=== PATIENT | female | born 1985 | race Hispanic/Latino ===

== ENCOUNTER 2022-09-16 09:43 | Observation (INO) | payer OTHER ==
--- OUTSIDE RECORDS SUMMARY | 2022-09-16 09:47 | XMS REPORT | Continuity of Care Document ---
:1985 Author Organization [facility] t Address [address] [facility] 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 00:00: [place] depressive depressive 00 Me dical disorder, disorder, Bran ch unspecifie unspecifie d d depression depression episode episode severity severity 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 10-08 ity of reaction reaction 00:00: [address] Branch Mixed Mixed Disease Active Univers hyperlipid hyperlipid 10-08 it y of emia emia 00:00: [address] LGSIL (low LGSIL (low Disease Active U nivers grade grade 8-05 ity of squamous squamous 00:00: [place] intraepith intraepith 00 Me dical elial [facility] Branch dysplasia) dysplasia) Subserous Subserous Disease Active Uni vers leiomyoma leiomyoma 8- ity of of uterus of uterus 00:[facility]: [facility] [address] Allergies, Adverse Reactions, Alerts Allergy Allergy Status Severity Reaction(s) Onset Inactive Treating Comm ents Source Name Type Date Date Clinician NO KNOWN Drug Active Univers ALLERGIE Class ity of S [facility] Social History Social Habit Start Date Stop Date Quantity Comments Source ASSERTION 2021-12-10 [facility] 00:00:00 [facility] Exposure to 2022-01-18 2022-01-28 Not sure [facility]-CoV-2 00:00:00 13:36:00 [facility] (event) [place] Tobacco use and 2022-01-28 2022-01-28 Smokeless tobacco Un iversity of exposure 00:00:00 00:00:00 non-user [facility] Alcohol intake 2022-01-28 2022-01-28 Ex-drinker [facility] 00:00:00 00:00:00 (finding) [facility] Sex Ass[birth year] At [birth year] Universit y of 00:00:00 00:00:00 [facility] Smoking Status Start Date Stop Date Source [facility] Medications Ordered Filled Start Stop Current Ordering Indication Dosage Frequency Signature Comments Components Source Medication Medication Date Date Medication? Clinician (SIG) Name Name No known 2021-04 No No known Unive rs medications 0-18 medication it y of 15:59: s [address] 2021-04 Take 1 Univer s vit/iron 0-18 10-18 TAB-CAP/M2 ity of fum/folic 15:57: 00:00 by mouth Fredy as ac 24 :00 daily. Medical ( 1 Indication Br anch + 1 ORAL) s: OTC PNV,calcium 2021-04 Yes [id number] 1{each} Take 1 Univers 72-iron,car 0-18 Each by ity o f b-folic 00:00: mouth [place] ( 00 daily. Medical PLUS) 29 mg Branch iron- 1 mg Tab PNV,calcium 2021-04 Yes [id number] 1{each} Take 1 Univers 72-iron,car 0-18 Each by ity o f b-folic 00:00: mouth [place] ( 00 daily. Medical PLUS) 29 mg Branch iron- 1 mg Tab buPROPion Yes [id number] 150mg Take 1 Univers XL 6-28 tablet by ity of (WELLBUTRIN 00:00: mouth [place] XL) 150 mg 00 every Medical 24 hr morning. Branch tablet buPROPion Yes [id number] 150mg Take 1 Univers XL 6-28 tablet by ity of (WELLBUTRIN 00:00: mouth [place] XL) 150 mg 00 every Medical 24 hr morning. Branch tablet buPROPion 2017-0 Yes [id number] 150mg Take 1 Univers XL 6-28 tablet by ity of (WELLBUTRIN 00:00: mouth [place] XL) 150 mg 00 every Medical 24 hr morning. Branch tablet Vital Signs Vital Name Observation Time Observation Value Comments Source Systolic blood 2022-01-28 18:36:00 117 mm[Hg] Univer sity [facility] Diastolic blood 2022-01-28 18:36:00 71 mm[Hg] [facility] rate 2022-01-28 18:36:00 92 /min [facility] Body temperature 2022-01-28 18:36:00 36.22 [facility] Respiratory rate 2022-01-28 18:36:00 19 /min [facility] Body height 2022-01-28 18:36:00 162.6 cm [facility] Body weight 2022-01-28 18:36:00 84.142 kg [facility] BMI 2022-01-28 18:36:00 31.84 kg/m2 [facility] Procedures Procedure Date / Time Performing Clinician Source Performed AUTHORIZATION FOR 2022-02-27 06:01:00 Doctor Unassigned, No [facility] RELEASE OF [facility] POCT TEST 2022-01-28 18:38:00 Geovanna Farfan [facility] POCT URINALYSIS W/O 2022-01-28 18:38:00 Geovanna Farfan [facility] SPECIFIC GRAVITY [facility] ASSIGNMENT OF BENEFITS 2022-01-28 18:14:09 Doctor Unassigned, No [facility] Medical Branch AUTHORIZATION TO RELEASE Doctor Unassigned, No [facility] TO [facility] Encounters Start End Encounter Admission Attending Care Care Encounter Source Date/Time Date/Time Type Type Clinicians Facility Department ID 2022-02-27 2022-02-27 Orders Doctor ORDAZ [id number] Univers 00:00:00 00:00:00 Only Unassigned, RANDI [id number] ity of [place] [facility] [id number] Fredy as [phone] [address] 2022-01-28 2022-01-28 Initial Adolph [facility] [id number] Univers 13:15:00 15:12:08 Geovanna ECONOMICS PROFESSOR [id number] i ty of Visit REGIONAL [id number] Fredy as MATERNAL [phone] [facility] ical & CHILD [address] [place] [address] 2022-01-28 2022-01-28 Outpatient R GEOVANNA FARFAN [facility] [id number] Univers 13:15:00 15:12:08 GEOVANNA FARFAN [facility] 2022-01-28 2022-01-28 Orders Doctor ORLIN [id number] Univers 00:00:00 00:00:00 Only Unassigned, RANDI [id number] ity of [place] [facility] [id number] Fredy as [id number] [address] Orders Doctor ORLIN [id number] Univers 00:00:00 00:00:00 Only Unassigned, RANDI [id number] ity of [place] [facility] [id number] Fredy as [phone] [address] Results Test Description Test Time Test Comments Results Result Comments Source POCT URINALYSIS W/O SPECIFIC GRAVITY 2022-01-28 18:39:00 Test Item Value Reference Range Interpretation Comme nts POCT PH U (test code = 3254) 7 mg/dl 5-8 POCT U LEUK EST (test code = 3263) n Negative - Negative POCT U NIT (test code = 3262) n Negative - Negative POCT U PROT (test code = 3259) n Negative - Negative POCT U GLU (test code = 3256) n Negative - Negative POCT U KETONE (test code = 3258) n Negative - Negative POCT U BLD (test code = 3257) n Negative - Negative Lab Interpretation (test code = 02051-8) Normal [id number] 18:38:00 Test Item Value Reference Range Interpretation Comments POCT PREG (test code = 1605) Positive On board controls acceptable with C Yes Line (test code = 3574) POCT PREG LOT # (test code = 3575) POCT PREG TEST DATE (test code = 3576) [facility]
[2022-09-16] MEDS ORDERED: FENTANYL CITR 100 MCG/2 ML ONE (10:41)
[2022-09-16] MEDS ORDERED: FAMOTIDINE 20 MG/2 ML VIAL IV ONE (10:41)
[2022-09-16] MEDS ORDERED: NA CHLORIDE 0.9% 1,000 ML ONE (10:41)
[2022-09-16] MEDS ORDERED: ONDANSETRON 4 MG/2 ML VIAL ONE (10:41)
[2022-09-16 10:59] LABS: Absolute Lymphocytes (CBC) 3.5 K/uL (0.7-4.9); Hematocrit 40.6 % (36.0-45.0); Lymphocytes % 27.1 % (15.3-44.8); MCV 86.6 fL (80-100); MPV 6.9 fL (7.6-11.3); Protime INR 0.95; RBC Red Blood Cell Count 4.69 M/uL (3.86-4.86)
[2022-09-16 11:20] LABS: ALT/SGPT 83 U/L (13-56); Albumin 3.2 g/dL (3.4-5.0); Alkaline Phosphatase 179 U/L (45-117); BUN Blood Urea Nitrogen 20 mg/dL (7-18); Bicarbonate 30 mEq/L (21-32); Bilirubin Direct 0.1 mg/dL (0-0.2); Bilirubin Indirect, Calculated 0.3 mg/dL (0.2-0.8); Bilirubin Total 0.4 mg/dL (0.2-1.0); Glomerular Filtration Rate 116 ml/min (=/>90); Glucose Level 87 mg/dL (74-106); Lipase 47 U/L (13-75); NT PRO-BNP 101 pg/mL (<125); Protein, Total 6.9 g/dL (6.4-8.2); Sodium Level 141 mEq/L (136-145)
[2022-09-16 11:21] LABS: AST/SGOT 131 U/L (15-37); Magnesium 2.2 mg/dL (1.6-2.4); Potassium 4.2 mEq/L (3.5-5.1); Troponin High Sensitivity < 3.0 pg/mL (<58.9)
--- NOTE | 2022-09-16 11:38 | RAD REPORT ---
EXAM DESCRIPTION: CT - Angio Aorta For Dissection - 09/16/2022 11:00 am CLINICAL HISTORY: ABD PAIN COMPARISON: Abdomen Exam Limited dated 09/16/2022 TECHNIQUE: Dynamically enhanced 3 mm thick images of the chest, abdomen, and pelvis were obtained du ring administration of approximately 100mL Isovue 370 IV contrast. Sagittal and coronal reconstructio ns as well as maximal intensity projection reconstruction were generated and reviewed per an aortic a ngiography protocol. All CT scans are performed using dose optimization technique as appropriate and may include automated exposure control or mA/KV adjustment according to patient size. FINDINGS: Aorta is normal in diameter with no dissection or other acute aortic findings. Reconstruct ion images show no significant findings. Pulmonary arteries are normal as well. No mass or infiltrate in the lung parenchyma. No pleural thickening, pleural effusion or pneumothorax . No abnormal mediastinal or hilar mass or lymphadenopathy seen. No chest wall mass or abnormal axillar y lymphadenopathy. Celiac, SMA and renal arteries show no suspicious findings. Cholesterol containing gallstones are not ed. Rotated right kidney. Posteriorly situated left pelvic mass which could be related to the lower u terine segment, measuring 8.8 x 7.8 x 7.8 centimeter. Ventricular marginally enhancing symmetric left lower abdominal wall fluid collection, symmetric, measuring up to 1.7 centimeter in thickness, with an overlying probable incision. Solid abdominal viscera and bowel show no other significant findings. No mass or abnormal lymphadenopathy. IMPRESSION: No acute abnormalities on CT angiogram of the aorta. Left posterior pelvic mass up to 8.8 centimeter in size, not well characterized. This could represent a lower segment or cervical fibroid among other considerations. Consider additional evaluation by de dicated pelvic ultrasound, although this may be suboptimal given size and posterior location of the m ass. MRI of the pelvis would provide superior soft tissue characterization. Other incidental findings as above, including a lower anterior abdominal wall lenticular collection, could represent a postoperative seroma.
--- NOTE | 2022-09-16 11:39 | RAD REPORT ---
EXAM DESCRIPTION: US - Abdomen Exam Limited - 09/16/2022 10:45 am CLINICAL HISTORY: ABD PAIN COMPARISON: No comparisons TECHNIQUE: Sonographic grayscale and color flow images of the right upper abdominal quadrant were obtained. FINDINGS: The gallbladder demonstrates multiple echogenic shadowing stones. No pericholecystic fluid or gallbladder wall thickening. The common bile duct is normal measuring 4 mm. The liver demonstrates no findings of intrahepatic biliary dilatation. IMPRESSION: Cholelithiasis. No sonographic findings to suggest acute cholecystitis.
--- NOTE | 2022-09-16 11:40 | RAD REPORT ---
EXAM DESCRIPTION: [place] Single View09/16/2022 11:22 am CLINICAL HISTORY: ABDOMINAL DISTENTION COMPARISON: No comparisons TECHNIQUE: Portable AP view of the chest. FINDINGS: The lungs are clear. No pneumothorax or effusion. The cardiomediastinal contours are unre markable. IMPRESSION: No acute cardiopulmonary process.
[2022-09-16] MEDS ORDERED: PIPERACIL/TAZO 3.375 GM VIAL IV ONE (11:45)
[2022-09-16] MEDS ORDERED: NA CHLORIDE 0.9% 100 ML ONE (11:45)
--- NOTE | 2022-09-16 12:04 | ER ---
Nurse's Notes [facility] Name: Frida Amador Age: 37 yrs Sex: Female : 1985 Arrival Date: 09/16/2022 Time: 09:43 Bed 7 Private MD: Diagnosis: Other cholelithiasis with obstruction;Cholecystitis, unspecified;Chest pain, unspecified Presentation: 09/16 09:48 Chief complaint: Patient states: woke up with chest pain today around 0430, pain went aa5 away for an hour and came back. Pt c/o chest pain radiating to back. 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 09:48 Coronavirus screen: shortness of breath. Ebola Screen: Patient denies travel to an [facility] Ebola-affected area in the 21 days before illness onset. Initial Sepsis Screen: Does the patient meet any 2 criteria? No. Patient's initial sepsis screen is negative. Does the patient have a suspected source of infection? No. Patient's initial sepsis screen is negative. Risk Assessment: Do you want to hurt yourself or someone else? Patient reports no desire to harm self or others. Onset of symptoms was September 16, 2022. 09:48 Acuity: KATHY 2 aa5 09:48 Method Of Arrival: Ambulatory aa5 SOCIAL SERVICE ASSISTANT: 11:00 "" nj Historical: - Allergies: 09:56 No Known Allergies; aa5 - Home Meds: 09:56 norco as needed [Active]; vitamins [Active]; ibuprofen as needed [Active]; aa5 steroids for allergic reaction from tape to site [Active]; - PMHx: 09:56 None; aa5 - PSHx: 09:56 section; aa5 - Immunization history:: Adult Immunizations unknown. - Social history:: Smoking status: Patient denies any tobacco usage or history of. Screenin:48 [facility] ED Fall Risk Assessment (Adult) Score/Fall Risk Level 0 - 2 = Low Risk hb Oriented to surroundings, Maintained a safe environment. Abuse screen: Denies threats or abuse. Denies injuries from another. Nutritional screening: No deficits noted. Tuberculosis screening: No symptoms or risk factors identified. Assessment: 10:49 General: Appears in no apparent distress. Behavior is calm, cooperative. Pain: Pain hb currently is 7 out of 10 on a pain scale. Neuro: Level of Consciousness is awake, alert, obeys commands, Oriented to person, place, time, situation. Cardiovascular: Patient's skin is warm and dry. Respiratory: Reports shortness of breath at rest on exertion Respiratory effort is even, unlabored, Respiratory pattern is regular, symmetrical. GI: Reports lower abdominal pain, upper abdominal pain. : No signs and/or symptoms were reported regarding the genitourinary system. EENT: No signs and/or symptoms were reported regarding the EENT system. Derm: Skin is pink, warm \\T\\ dry. Musculoskeletal: No signs and/or symptoms reported regarding the musculoskeletal system. 11:50 Reassessment: Patient appears in no apparent distress at this time. Patient and/or nj1 family updated on plan of care and expected duration. Pain level reassessed. Patient is alert, oriented x 3, equal unlabored respirations, skin warm/dry/pink. 11:50 Pain: Denies pain. nj1 13:00 Reassessment: Patient not in room at this time. nj1 13:54 Reassessment: Pt not in room at this time. nj1 14:14 Reassessment: Patient appears in no apparent distress at this time. Patient and/or nj1 family updated on plan of care and expected duration. Pain level reassessed. Patient is alert, oriented x 3, equal unlabored respirations, skin warm/dry/pink. 15:07 Reassessment: Call placed to warehouse unloader to request help obtaining a breast pump nj1 as instructed/requested by hospitalist HIDE SHAKER. 15:30 Reassessment: Patient appears in no apparent distress at this time. Patient and/or nj1 family updated on plan of care and expected duration. Pain level reassessed. Patient is alert, oriented x 3, equal unlabored respirations, skin warm/dry/pink. 16:10 Reassessment: Patient appears in no apparent distress at this time. Patient and/or nj1 family updated on plan of care and expected duration. Pain level reassessed. Patient is alert, oriented x 3, equal unlabored respirations, skin warm/dry/pink. 18:30 Reassessment: Patient appears in no apparent distress at this time. Patient and/or nj1 family updated on plan of care and expected duration. Pain level reassessed. Patient is alert, oriented x 3, equal unlabored respirations, skin warm/dry/pink. 18:56 Reassessment: Unsuccessful attempt to call report, "nurses doing shift change report". nj1 Vital Signs: 09:48 BP 115 / 76; Pulse 78; Resp 18 S; Temp 98(O); Pulse Ox 98% on R/A; Weight 89.36 kg (R); aa5 Height 5 ft. 4 in. (R); 11:34 BP 131 / 99; Pulse 74; Pulse Ox 97% on R/A; nj1 14:13 BP 108 / 92; Pulse 63; Resp 16; Pulse Ox 97% on R/A; Pain 5/10; nj1 15:12 BP 110 / 69; Pulse 66; Resp 15; Pulse Ox 99% on R/A; hb 16:10 BP 135 / 87; Pulse 83; Resp 16; Pulse Ox 98% on R/A; Pain 3/10; nj1 17:29 BP 132 / 97; Pulse 79; Resp 17; Pulse Ox 95% on R/A; nj1 18:30 BP 110 / 96; Pulse 78; Resp 16; Pulse Ox 99% ; Pain 3/10; nj1 09:48 Body Mass Index 33.81 (89.36 kg, 162.56 cm) aa5 14:13 Pain Scale: Adult nj1 16:10 Pain Scale: Adult nj1 18:30 Pain Scale: Adult nj1 ED Course: 09:44 Patient arrived in ED. am2 09:45 Max Blunt MD is Attending Physician. [facility] 09:48 Suzi Morales, MARCELINO is Primary Nurse. nj1 09:48 Arm band placed on. aa5 09:56 Triage completed. aa5 10:47 US Abdomen Limited In Process Unspecified. EDMS 10:48 Inserted saline lock: 20 gauge in left antecubital area, using aseptic technique. Blood hb collected. Patient maintains SpO2 saturation greater than 95% on room air. 10:50 Patient has correct armband on for positive identification. Client placed on continuous hb cardiac and pulse oximetry monitoring. NIBP monitoring applied. 11:02 CT Aorta for Dissection: pe/dissection In Process Unspecified. EDMS 11:24 XRAY Chest (1 view) In Process Unspecified. EDMS 12:02 Anthony Amador MD is Hospitalizing Provider. [facility] 12:08 Hospitalizing Provider role handed off by Anthony Amador MD neha 12:08 Laz Parrish MD is Hospitalizing Provider. neha 12:47 Pelvis Complete In Process Unspecified. EDMS 14:01 Cholangiogram In Process Unspecified. EDMS Administered Medications: 10:47 Drug: Famotidine IVP 20 mg Route: IVP; Site: left antecubital; hb 12:06 Follow up: Response: No adverse reaction nj1 10:47 Drug: fentaNYL (PF) IVP 50 mcg Route: IVP; Site: left antecubital; hb 12:05 Follow up: Response: No adverse reaction; Pain is decreased nj1 10:47 Drug: Ondansetron IVP 4 mg Route: IVP; Site: left antecubital; hb 12:05 Follow up: Response: No adverse reaction nj1 10:48 Drug: NS 0.9% IV 1000 ml Route: IV; Rate: 1 bolus; Site: left antecubital; hb 12:30 Follow up: Response: No adverse reaction; IV Status: Completed infusion; IV Intake: nj1 1000ml 11:56 Drug: Piperacillin-Tazobactam IVPB 3.375 grams Route: IVPB; Infused Over: 60 mins; nj1 Site: left antecubital; 15:30 Follow up: Response: No adverse reaction; IV Status: Completed infusion; IV Intake: nj1 100ml 13:28 Drug: Ativan IVP 1 mg Route: IVP; Site: left antecubital; hb 15:44 Follow up: Response: No adverse reaction nj1 Medication: 10:50 VIS not applicable for this client. hb Intake: 12:30 IV: 1000ml; Total: 1000ml. nj1 15:30 IV: 100ml; Total: 1100ml. nj1 Outcome: 12:03 Decision to Hospitalize by Provider. neha 19:53 Patient left the ED. jb4 Signatures: Dispatcher [employer] EDMS Max Blunt MD MD cha Calderon, Audri, RN RN aa5 Toshia Santos, MARCELINO RN Charlie Farr, RN RN jb4 Kenyetta Blue am2 Suzi Morales, MARCELINO RN nj1 Corrections: (The following items were deleted from the chart) 09:58 09:48 Chief complaint: Patient states: woke up with chest pain today around 0430, pain aa5 went away for an hour and came back. Pt c/o chest pain radiating to back. Pt reports had 08/26/22 aa5
--- NOTE | 2022-09-16 12:04 | EDPHYS ---
Physician Documentation [facility] Name: Frida Amador Age: 37 yrs Sex: Female : 1985 Arrival Date: 09/16/2022 Time: 09:43 Bed 7 Private MD: FLO Physician Max Blunt HPI: 09/16 11:13 This 37 yrs old Female presents to ER via Ambulatory with complaints of Chest neha Pain, Back Pain, recent . 11:13 The patient or guardian reports chest pain that is located primarily in the epigastric neha area, anterior chest wall. The pain radiates to Associated signs and symptoms: Pertinent positives: abdominal pain. The chest pain is described as causing indigestion. Duration: The patient or guardian reports multiple episodes, that have now resolved. Severity of pain: At its worst the pain was moderate. The patient has not experienced similar symptoms in the past. 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 - Social history:: Smoking status: Patient denies any tobacco usage or history of. ROS: 11:27 Constitutional: Negative for fever, chills, and weight loss, Eyes: Negative for injury, neha pain, redness, and discharge, ENT: Negative for injury, pain, and discharge, Neck: Negative for injury, pain, and swelling, Cardiovascular: Negative for chest pain, palpitations, and edema, Respiratory: Negative for shortness of breath, cough, wheezing, and pleuritic chest pain, Back: Negative for injury and pain, : Negative for injury, bleeding, discharge, and swelling, MS/Extremity: Negative for injury and deformity, Skin: Negative for injury, rash, and discoloration, Neuro: Negative for headache, weakness, numbness, tingling, and seizure, Psych: Negative for depression, anxiety, suicide ideation, homicidal ideation, and hallucinations, Allergy/Immunology: Negative for hives, rash, and allergies, Endocrine: Negative for neck swelling, polydipsia, polyuria, polyphagia, and marked weight changes, Hematologic/Lymphatic: Negative for swollen nodes, abnormal bleeding, and unusual bruising. 11:27 Abdomen/GI: Positive for abdominal pain, of the epigastric area and right upper quadrant. Exam: 11:27 Constitutional: This is a well developed, well nourished patient who is awake, alert, neha and in no acute distress. Head/Face: Normocephalic, atraumatic. Eyes: Pupils equal round and reactive to light, extra-ocular motions intact. Lids and lashes normal. Conjunctiva and sclera are non-icteric and not injected. Cornea within normal limits. Periorbital areas with no swelling, redness, or edema. ENT: Nares patent. No nasal discharge, no septal abnormalities noted. Tympanic membranes are normal and external auditory canals are clear. Oropharynx with no redness, swelling, or masses, exudates, or evidence of obstruction, uvula midline. Mucous membranes moist. Neck: Trachea midline, no thyromegaly or masses palpated, and no cervical lymphadenopathy. Supple, full range of motion without nuchal rigidity, or vertebral point tenderness. No Meningismus. Chest/axilla: Normal chest wall appearance and motion. Nontender with no deformity. No lesions are appreciated. Cardiovascular: Regular rate and rhythm with a normal S1 and S2. No gallops, murmurs, or rubs. Normal PMI, no JVD. No pulse deficits. Respiratory: Lungs have equal breath sounds bilaterally, clear to auscultation and percussion. No rales, rhonchi or wheezes noted. No increased work of breathing, no retractions or nasal flaring. Back: No spinal tenderness. No costovertebral tenderness. Full range of motion. Female : Normal external genitalia. Skin: Warm, dry with normal turgor. Normal color with no rashes, no lesions, and no evidence of cellulitis. MS/ Extremity: Pulses equal, no cyanosis. Neurovascular intact. Full, normal range of motion. Neuro: Awake and alert, GCS 15, oriented to person, place, time, and situation. Cranial nerves II-XII grossly intact. Motor strength 5/5 in all extremities. Sensory grossly intact. Cerebellar exam normal. Normal gait. Psych: Awake, alert, with orientation to person, place and time. Behavior, mood, and affect are within normal limits. 11:27 Abdomen/GI: Inspection: distension, Bowel sounds: active, Palpation: mild abdominal tenderness, moderate abdominal tenderness, in the right upper quadrant, Liver: no appreciated palpable abnormalities, Hernia: not appreciated. 12:04 ECG was reviewed by the Attending Physician. [facility] Vital Signs: 09:48 BP 115 / 76; Pulse 78; Resp 18 S; Temp 98(O); Pulse Ox 98% on R/A; Weight 89.36 kg (R); aa5 Height 5 ft. 4 in. (R); 11:34 BP 131 / 99; Pulse 74; Pulse Ox 97% on R/A; nj1 14:13 BP 108 / 92; Pulse 63; Resp 16; Pulse Ox 97% on R/A; Pain 5/10; nj1 15:12 BP 110 / 69; Pulse 66; Resp 15; Pulse Ox 99% on R/A; hb 16:10 BP 135 / 87; Pulse 83; Resp 16; Pulse Ox 98% on R/A; Pain 3/10; nj1 17:29 BP 132 / 97; Pulse 79; Resp 17; Pulse Ox 95% on R/A; nj1 18:30 BP 110 / 96; Pulse 78; Resp 16; Pulse Ox 99% ; Pain 3/10; nj1 09:48 Body Mass Index 33.81 (89.36 kg, 162.56 cm) aa5 14:13 Pain Scale: Adult nj1 16:10 Pain Scale: Adult nj1 18:30 Pain Scale: Adult nj1 MDM: 09:45 Patient medically screened. [facility] 11:29 Differential diagnosis: abnormal EKG, acute myocardial infarction, chest wall pain, neha cholecystitis, Cholelithiasis esophagitis, pancreatitis, peptic ulcer disease, pericarditis, pulmonary embolus, stable angina, thoracic aortic disection, unstable angina. HEART Score: History: Slightly Suspicious (0), ECG: Non specific repolarization disturbance / LBTB / PM (1), Age: < or = 45 years (0), Risk Factors: No Risk Factors Known (0), Troponin: < or = 1 x Normal Limit (0). MAXIM Risk Score: TOTAL SCORE = 0. Data reviewed: vital signs, nurses notes, lab test result(s), EKG, radiologic studies, CT scan, MRI, ultrasound. Consideration of Admission/Observation Escalation of care including admission/observation considered. I considered the following discharge prescriptions or medication management in the emergency department Medications were administered in the Emergency Department. See MAR. Test considered but Not performed:. Care significantly affected by the following chronic conditions: none, post . 09/16 10:21 Order name: Basic Metabolic Panel; Complete Time: 11:28 [facility] 09/16 10:21 Order name: CBC with Diff; Complete Time: 11:28 [facility] 09/16 10:21 Order name: LFT's; Complete Time: 11:28 [facility] 09/16 10:21 Order name: Magnesium; Complete Time: 11:28 [facility] 09/16 10:21 Order name: NT PRO-BNP; Complete Time: 11:28 [facility] 09/16 10:21 Order name: PT-INR; Complete Time: 11:28 [facility] 09/16 10:21 Order name: Troponin HS; Complete Time: 11:28 [facility] 09/16 10:21 Order name: Lipase; Complete Time: 11:28 [facility] 09/16 18:15 Order name: Phosphorus [facility] 09/16 18:15 Order name: Magnesium [facility] 09/16 18:18 Order name: Troponin High Sensitivity [facility] 09/16 10:21 Order name: XRAY Chest (1 view); Complete Time: 11:51 [facility] 09/16 10:21 Order name: CT Aorta for Dissection: pe/dissection; Complete Time: 11:51 [facility] 09/16 10:21 Order name: US Abdomen Limited; Complete Time: 11:51 [facility] 09/16 11:33 Order name: Cholangiogram [facility] 09/16 12:41 Order name: Pelvis Complete; Complete Time: 14:24 [facility] 09/16 10:21 Order name: EKG; Complete Time: 10:22 [facility] 09/16 18:08 Order name: Diet Heart Healthy; Complete Time: 18:09 [facility] 09/16 10:21 Order name: Cardiac monitoring; Complete Time: 10:48 [facility] 09/16 10:21 Order name: EKG - Nurse/Tech; Complete Time: 12:06 [facility] 09/16 10:21 Order name: IV Saline Lock; Complete Time: 10:48 [facility] 09/16 10:21 Order name: Labs collected and sent; Complete Time: 10:48 [facility] 09/16 10:21 Order name: O2 Per Protocol; Complete Time: 10:48 [facility] 09/16 10:21 Order name: O2 Sat Monitoring; Complete Time: :48 neha EC:04 Rate is 68 beats/min. QRS [place] is Normal. OK interval is normal. QRS interval is neha normal. QT interval is normal. No Q waves. T waves are Normal. No ST changes noted. Clinical impression: Normal ECG and No evidence of ischemia. Interpreted by me. Reviewed by me. Administered Medications: 10:47 Drug: Famotidine IVP 20 mg Route: IVP; Site: left antecubital; hb 12:06 Follow up: Response: No adverse reaction nj1 10:47 Drug: fentaNYL (PF) IVP 50 mcg Route: IVP; Site: left antecubital; hb 12:05 Follow up: Response: No adverse reaction; Pain is decreased nj1 10:47 Drug: Ondansetron IVP 4 mg Route: IVP; Site: left antecubital; hb 12:05 Follow up: Response: No adverse reaction nj1 10:48 Drug: NS 0.9% IV 1000 ml Route: IV; Rate: 1 bolus; Site: left antecubital; hb 12:30 Follow up: Response: No adverse reaction; IV Status: Completed infusion; IV Intake: nj1 1000ml 11:56 Drug: Piperacillin-Tazobactam IVPB 3.375 grams Route: IVPB; Infused Over: 60 mins; nj1 Site: left antecubital; 15:30 Follow up: Response: No adverse reaction; IV Status: Completed infusion; IV Intake: nj1 100ml 13:28 Drug: Ativan IVP 1 mg Route: IVP; Site: left antecubital; hb 15:44 Follow up: Response: No adverse reaction nj1 Disposition Summary: 09/16/22 12:03 Hospitalization Ordered Hospitalization Status: Observation neha Location: Telemetry/MedSurg (observation) neha Condition: Stable neha Problem: new neha Symptoms: have improved neha Bed/Room Type: Standard neha Provider: Laz Parrish(09/16/22 12:10) neha Room Assignment: 210(09/16/22 18:44) bd Diagnosis - Other cholelithiasis with obstruction neha - Cholecystitis, unspecified neha - Chest pain, unspecified neha Forms: - Medication Reconciliation Form neha - SBAR form neha Signatures: Dispatcher [employer] EDMS Zari Coker Corey, MD MD cha Calderon, Audri, RN RN aa5 Toshia Santos, MARCELINO RN Suzi Morales RN RN nj1 Corrections: (The following items were deleted from the chart) 12:10 12:03 Anthony Amador cha, cha 12:41 11:54 Transvaginal Study (Probe)+US.RAD.BRZ ordered. EDMS EDMS 18:44 12:03 neha otto
--- NOTE | 2022-09-16 13:10 | RAD REPORT ---
EXAM DESCRIPTION: US - Pelvis Complete - 09/16/2022 12:46 pm CLINICAL HISTORY: 8 cm mass, seroma COMPARISON: Angio Aorta For Dissection dated 09/16/2022 TECHNIQUE: Sonographic grayscale and color flow images of the pelvis were obtained through a trans abdominal approach. FINDINGS: The uterus is enlarged, measuring 13.8 centimeter in length. Heterogeneity seen in the jules tral aspect of the fundus, likely relating to involuting endometrium, following recent . The endometrial stripe could not be accurately measured. The posteriorly situated masslike abnormalit y appreciated on CT was not well visualized on this ultrasound. The ovaries were not visualized due to displacement by the enlarged uterus. No significant pelvic ascites. IMPRESSION: Recently gravid uterus as above. Some heterogeneity at the central aspect of the fundus likely relating to involuting endometrium. The ovaries could not be visualized. The posteriorly situated masslike abnormality appreciated on CT is not well visualized on this transa bdominal ultrasound. MRI would be more helpful for further evaluation, however preferably it can be p erformed after more time was allowed for uterine involution, in 2-6 weeks.
[2022-09-16] MEDS ORDERED: LORazepam 2 MG/ML VIAL ONE (13:29)
--- NOTE | 2022-09-16 14:08 | RAD REPORT ---
EXAM DESCRIPTION: MRI - Cholangiogram - 09/16/2022 1:59 pm CLINICAL HISTORY: abd pain COMPARISON: Angio Aorta For Dissection dated 09/16/2022; Pelvis Complete dated 09/16/2022 FINDINGS: Three-dimensional MRCP was performed using maximum intensity projection reconstruction on the same work station. No intrahepatic biliary tree dilatation is seen. The common bile duct is normal caliber without evide nce of retained stone, stricture or mass. The pancreatic duct is not pathologically dilated. Extensive cholelithiasis is present with gallbladder distension. Limited T2 sequences through the abdomen demonstrates no bulky adenopathy, significant free fluid or abscess. IMPRESSION: Extensive cholelithiasis with gallbladder distension.
[2022-09-16] MEDS ORDERED: ACETAMINOPHEN 325 MG TABLET PO PRN (14:16)
--- NOTE | 2022-09-16 15:34 | P.HP ---
Certification for Inpatient Patient admitted to: Observation With expected LOS: <2 Midnights Patient will require the following post-hospital care: None Practitioner: I am a practitioner with admitting privileges, knowledge of patient current condition, hospital course, and medical plan of care. Services: Services provided to patient in accordance with Admission requirements found in Title 42 Section 412.3 of the Code of Federal Regulations Patient History Date of Service: 09/16/22 Reason for admission: Epigastric pain History of Present Illness: Patient is a 37-year-old with no known past medical history who presents with complaints of chest pain located in the epigastric area onset this morning. Patient rated pain as 10/10 in severity and described pain as sharp in quality. Patient indicated that chest pain radiates to her back. Patient indicated that she recently had a 08/25/2022 and is currently breast-feeding. Patient reported associated signs and symptoms of diaphoresis and shortness of breath. Patient denies any other signs and symptoms. Symptoms are aggravated or relieved by nothing. Patient decided to present to the hospital due to worsening symptoms. Allergies No Known Allergies Allergy (Unverified 04/27/22 21:42) - Past Medical/Surgical History Past Medical History: Reviewed- Non-Contributory -: - Family History Family History: Reviewed- Non-Contributory - Social History Smoking Status: Former smoker Alcohol use: No CD- Drugs: No Caffeine use: Yes Place of Residence: Home Review of Systems General: Sweats Eyes: Unremarkable ENT: Unremarkable Respiratory: Shortness of Breath Cardiovascular: Chest Pain Gastrointestinal: Abdominal Pain Genitourinary: Unremarkable Musculoskeletal: Unremarkable Integumentary: Unremarkable Neurological: Unremarkable Lymphatics: Unremarkable Physical Examination - Physical Exam General: Alert, In no apparent distress, Oriented x3, Cooperative HEENT: Atraumatic, PERRLA, Mucous membr. moist/pink, EOMI, Sclerae nonicteric Neck: Supple, 2+ carotid pulse no bruit, No LAD, Without JVD or thyroid abnormality Respiratory: Clear to auscultation bilaterally, Normal air movement Cardiovascular: No edema, Regular rate/rhythm, Normal S1 S2 Capillary refill: <2 Seconds Gastrointestinal: Normal bowel sounds, Soft and benign, Tenderness Musculoskeletal: No clubbing, No swelling, No tenderness Integumentary: No rashes Neurological: Normal gait, Normal speech, Normal strength at 5/5 x4 extr, Normal tone, Normal affect Lymphatics: No axilla or inguinal lymphadenopathy - Studies Laboratory Data (last 24 hrs) 09/16/22 10:45: PT 10.4, INR 0.95 09/16/22 10:45: WBC 12.90 H, Hgb 13.2, Hct 40.6, Plt Count 541 H 09/16/22 10:45: Sodium 141, Potassium 4.2, BUN 20 H, Creatinine 0.67, Glucose 87, Magnesium 2.2, Total Bilirubin 0.4, AST 131 H, ALT 83 H, Alkaline Phosphatase 179 H, Lipase 47 Assessment and Plan - Plan --Cholelithiasis. MRCP indicates Extensive cholelithiasis with gallbladder distension. Surgeon consulted. Plans surgery in AM. We will keep patient NPO. Further management per surgeon. -- Acute pain. We will manage pain with current pain medication regimen. --Chest pain. Likely atypical. Serial troponins negative so far. Telemetry to monitor for any significant arrhythmia. Continue supportive care. --. Patient recently had on 08/26/2022. Breast pump to bedside. Patient instructed to pump and dump breast-feed breast due to contrast for imaging studies. Pharmacy consulted for medication management. --Class I obesity. Likely secondary to excess calories intake. Patient counseled on weight reduction, diet and exercise therapy. --Leukocytosis. Likely reactive. Blood cultures pending. We will continue to monitor WBCs. --DVT prophylaxis with SCDs. Discharge Plan: Home Plan to discharge in: 48 Hours - Advance Directives Does patient have a Living Will: No Does patient have a Durable POA for Healthcare: No - Code Status/Comfort Care Code Status Assessed: Yes Physician Review: Patient Assessed, Agree with Above Assessment and Plan Critical Care: No
[2022-09-16 18:14] LABS: Magnesium 2.2 mg/dL (1.6-2.4); Phosphorus 3.6 mg/dL (2.5-4.9)
[2022-09-16] MEDS: D5 0.9 NS 1,000 ML IV SCH (20:26)
[2022-09-16 21:33] VITALS: BMI 33.7
[2022-09-17] MEDS: PIPER TAZO 3.375 GM in NA CHLORIDE 0.9% 100 ML IV SCH ×3 (01:16→16:45)
[2022-09-17 04:07] LABS: Absolute Lymphocytes (CBC) 2.8 K/uL (0.7-4.9); Hematocrit 38.4 % (36.0-45.0); Lymphocytes % 29.6 % (15.3-44.8); MCV 86.4 fL (80-100); MPV 7.6 fL (7.6-11.3); RBC Red Blood Cell Count 4.45 M/uL (3.86-4.86)
[2022-09-17 04:28] LABS: Albumin 3.1 g/dL (3.4-5.0); Bilirubin Direct 0.1 mg/dL (0-0.2); Bilirubin Total 0.3 mg/dL (0.2-1.0); Potassium 3.7 mEq/L (3.5-5.1); Protein, Total 6.6 g/dL (6.4-8.2)
--- NOTE | 2022-09-17 07:17 | EKG ---
Test Date: 2022-09-16 Test Time: 11:52:28 Mail Caller: THOM MEASUREMENT RESULTS: Intervals: Rate: 68 CA: 156 QRSD: 92 QT: 392 QTc: 416 [place]: P: 45 CA: 156 QRS: 36 T: 44 INTERPRETIVE STATEMENTS: Normal sinus rhythm Normal ECG No previous ECG available for comparison Electronically Signed On 09-17-22 07:14:12 CDT by Kyle Hunter
[2022-09-17 07:27] LABS: Specific Gravity 1.027 (1.005-1.030); Urine Bacteria None Seen /HPF (<20); Urine Bilirubin NEGATIVE (Negative); Urine Blood Trace (Negative); Urine Clarity Clear (Clear); Urine Color Light-Yellow (Yellow); Urine Glucose NEGATIVE (Negative); Urine Mucus Slight /HPF (None Seen); Urine Protein NEGATIVE (Negative); Urine RBC <5 /HPF (None Seen); Urine Urobilinogen Normal (Normal); Urine pH 5.5 (5.0-7.0)
[2022-09-17] MEDS: MORPHINE 2 MG/ML SYR IV PRN ×5 (09:04→23:34)
[2022-09-17] MEDS ORDERED: Ringers Lactate 1,000 ML IV ONE (09:25)
[2022-09-17] MEDS ORDERED: propofoL 200 MG/20 ML VIAL IV ONE (09:53)
[2022-09-17] MEDS ORDERED: FENTANYL CITR 100 MCG/2 ML ONE (09:56)
[2022-09-17] MEDS ORDERED: ROCURONIUM 50 MG/5 ML VIAL IV ONE (09:56)
[2022-09-17] MEDS ORDERED: MIDAZOLAM HCL 2 MG/2 ML INJ ONE (09:56)
[2022-09-17] MEDS ORDERED: KETOROLAC 30 MG/ML INJ ONE (09:56)
[2022-09-17] MEDS ORDERED: ONDANSETRON 4 MG/2 ML VIAL ONE ×2 (09:57→14:37)
[2022-09-17] MEDS ORDERED: POTASSIUM CL SA 10 MEQ TAB PO ONE (12:00)
[2022-09-17] MEDS ORDERED: NEOSTIGMINE 1 MG/ML -10 ML VIAL ONE (12:01)
[2022-09-17] MEDS ORDERED: GLYCOPYRROLATE 0.2 MG/ML SYR ONE (12:01)
--- NOTE | 2022-09-17 12:03 | P.BOP ---
Preoperative diagnosis: acute cholecystitis, symptomatic cholelithiasis Postoperative diagnosis: same Primary procedure: Laparoscopic cholecystectomy Lime Sludge Mixer: MICHELLE ENRIQUEZ ([employer] ) Estimated blood loss: <20cc Specimen: gb Findings: as above Anesthesia: General Complications: None Drain(s): TYLOR drain Transferred to: Recovery Room Condition: Good
[2022-09-17] MEDS ORDERED: MORPHINE 10 MG/ML VIAL ONE (12:07)
[2022-09-17] MEDS ORDERED: Mastisol Adhesive Liq ONE (12:16)
[2022-09-17] MEDS: MEPERIDINE HCL 25 MG/ML SYR ONE ×2 (12:35→12:38)
[2022-09-17] MEDS ORDERED: MORPHINE 4 MG/ML SYR ONE (12:42)
[2022-09-17] MEDS: HYDROMORPHONE HCL 1 MG/ML INJ ONE ×2 (12:46→13:07)
[2022-09-17] MEDS: FENTANYL CITR 100 MCG/2 ML ONE ×2 (13:13→13:23)
--- NOTE | 2022-09-17 13:29 | CON ---
Date of Consultation: 09/17/2022 Diagnoses: Acute cholecystitis, symptomatic cholelithiasis, intractable right upper quadrant abdomin al pain. History Of Present Illness: This is the case of a 37-year-old patient, who comes to us with acute ab dominal pain, intractable, did not go away. She had a baby about 3 weeks ago and she has been doing okay, but developed this epigastric right upper quadrant pain associated with nausea, vomiting, bloat ing. She came to the ER. The pain did not improve, so she was admitted to the hospital for possible cholecystectomy and a surgical consult was obtained. She denies any dysuria, hematuria, hematochezi a, melena. Denies any recent traveling out of the country. Denies any family member sick at home. She is her baby. She was advised if she is going to breastfeed again, she must consult the packerhead machine operator to make sure the medication given and to be given in the next few days does not aff ect the baby. Past Medical History: None. Past Surgical History: Includes 3 weeks ago. Family History: Noncontributory. Social History: She does not smoke. She does not drink alcohol. Physical Examination: General: The patient is awake, alert. HEENT: Pupils are equal and reactive. Anicteric. Neck: Supple. Chest: Clear. Heart: S1, S2. Abdomen: Soft and depressible. There is Howard sign positive. There is a lower incision present fr om the . Extremities: Good capillary refill. Laboratory Data: Blood work shows a WBC count of 12.9, hemoglobin of 13.2, platelets of 541. INR is 0.95, bilirubin of 0.1, alkaline phosphatase of 179, ALT 83, AST 131. Lipase 47. Abdominal ultraso und shows cholelithiasis. The liver demonstrates no finding of intrahepatic biliary duct dilatation. The common bile duct is about 4 mm. CAT scan of the abdomen and pelvis shows left posterior pelvic mass up to 8 cm in size, the patient knows about it. Once again, fibroid is a differential diagnosi s. She was advised to discuss that with her primary doctor. Other incidental finding is abdominal w all fluid collection that could represent a postoperative seroma from the previous . An [facility] P interpreted by Dr. Benavides as extensive cholelithiasis with gallbladder distention. No intrahepatic b iliary tree dilatation seen. The common bile duct is normal in caliber without evidence of any retai ritu stones, strictures, or mass. The pancreatic duct is not pathologically dilated. Assessment: This is a 37-year-old patient with acute cholecystitis, symptomatic cholelithiasis. The patient wants surgery done during this admission. The benefits, alternatives, and risks of laparosc opic possible open cholecystectomy fully explained, which include, but not limited to infection, blee ding, damage to adjacent structures, anesthesia complication, choledocholithiasis, bile leak, pancrea titis, MO, and even . She also understands this may not relieve any symptoms. She might need m ore than one surgical intervention. She understood, signed a consent. She understands that tomorrow I will be out of town. I am going to have a surgeon covering for me this week. She still wants me to proceed and to be the surgeon for her. She was booked in OR. CALE/KIA Voice ID: [id number] Report ID: [id number]
[2022-09-17] MEDS ORDERED: ONDANSETRON 4 MG/2 ML VIAL IV PRN (14:26)
--- NOTE | 2022-09-17 16:53 | OP ---
Date of Procedure: 09/17/2022 Surgeon: Anthony Amador MD Marsh Buggy Operator: Lila Garcia. Preoperative Diagnoses: Acute cholecystitis, intractable right upper quadrant abdominal pain, sympto matic cholelithiasis, status post 3 weeks ago. Postoperative Diagnoses: Acute cholecystitis, intractable right upper quadrant abdominal pain, sympt omatic cholelithiasis, status post 3 weeks ago. Procedure: Laparoscopic cholecystectomy. Estimated Blood Loss: Less than 20 cc. Anesthesia: General plus local. Drains: TYLOR #10. Indication: This is the case of a female, who comes to us with intractable abdominal pain, came to [facility] ER, admitted to the hospital. The pain did not get better, diagnosed with a Howard sign positive, acute cholecystitis on clinical examination. MRCP was done due to mildly increased alkaline phospha tase and AST and ALT, shows no stone in the common bile duct. The patient wants surgery done during this admission. So, we offered her laparoscopic possible open cholecystectomy with benefits, alterna tives, and risks including, but not limited to infection, bleeding, damage to adjacent structures, an esthesia complication, choledocholithiasis, bile leak, pancreatitis, NC, and even . She also un derstands this may not relieve any symptoms. She might need more than one surgical intervention. Jaci meyer understood, signed a consent. Procedure In Detail: The patient was brought to the operating room, placed in supine position. Anes thesia was done without complication. Abdominal area was prepped and draped in the usual sterile fas hion. Local anesthesia was applied to area to be incised. The patient has a curvilinear incision in the periumbilical region. Apparently, the patient has had a possible abdominoplasty in the past. Ruben e opened that incision, went all the way down to fascia until we find the peritoneum, opened under di rect vision. Vicryl #1 placed inside the fascia. Adalberto trocar was carefully introduced. Pneumoper itoneum was obtained. I placed 3 more trocars, 5 mm each one of them in the epigastric upper quadran t area using same technique. At that moment, I proceeded to visualize the area of the gallbladder. There was very friable gallbladder and liver, so we were able to first deflate the gallbladder partia lly under direct visualization and put an Endo needle under direct visualization. Then, after that, we proceeded to carefully put a grasper in the fundus of the gallbladder, another grasper in the infu ndibulum and carefully retracted the gallbladder in the inferolateral fashion, exposing the triangle of Calot, and obtaining critical view. Cystic duct and cystic artery were clearly isolated, freed ci rcumferentially and a connection between those and the gallbladder were clearly identified. I procee ded to ligate those by using at least 3 clips proximal, 1 clip distal, ligation in the middle. Same was done with the cystic artery. The gallbladder was removed from the liver using Bovie cauterizer, nice and slow since the liver is friable. The gallbladder was removed from the liver using Bovie cau terizer and removed from the abdominal cavity using EndoCatch through the umbilical incision. Due to the size of the gallbladder, we even have to extend the incision in the bellybutton to be able to ac commodate and extract the gallbladder. The cameras were placed back in. We obtained hemostasis with the help of Bovie cauterizer and with the help of Surgicel. No bleeding. I left a TYLOR drain in that area, is inflamed gallbladder and we left the TYLOR exiting to 1 of the trocar sites. The patient tole rated the procedure well. At that moment, I proceeded to remove the trocars under direct vision, def lated pneumoperitoneum. Closed the fascia with #1 Vicryl. Irrigated subcutaneous tissue, closed merna t with 3-0 chromic and the skin in subcuticular fashion with 3-0 chromic and Steri-Strips on top. Sp onge count, instrument counts correct. The patient tolerated the procedure well. The patient was se nt to recovery in stable condition. CALE/KIA Voice ID: [id number] Report ID: [id number]
[2022-09-17] MEDS: D5 0.9 NS 1,000 ML IV SCH (17:40)
[2022-09-17 17:53] LABS: Albumin 3.3 g/dL (3.4-5.0); Bilirubin Direct 0.5 mg/dL (0-0.2); Bilirubin Indirect, Calculated 0.3 mg/dL (0.2-0.8); Bilirubin Total 0.8 mg/dL (0.2-1.0); Protein, Total 6.8 g/dL (6.4-8.2)
--- NOTE | 2022-09-17 20:14 | P.PN ---
Subjective Date of Service: 09/17/22 Chief Complaint: Epigastric pain No acute events overnight. She reports that her abdominal pain is slightly better compared to yesterday. She spoke with Dr. Amador this morning and it was decided to proceed with laparoscopic cholecystectomy today. She is tentatively scheduled for 12:00 PM. She has been NPO past midnight. She denies fevers, chills, chest pain, or shortness of breath. Review of Systems 10-point ROS is otherwise unremarkable Gastrointestinal: Nausea, Abdominal Pain Physical Examination - Vital Signs Temperature: 97.4 F Blood Pressure: 112/72 Pulse: 70 Respirations: 14 Pulse Ox (%): 98 - Physical Exam General: Alert, In no apparent distress, Oriented x3 HEENT: Atraumatic, Mucous membr. moist/pink, Sclerae nonicteric Neck: JVD not distended Respiratory: Clear to auscultation bilaterally, Normal air movement Cardiovascular: No edema, Regular rate/rhythm, Normal S1 S2, No gallops, No rubs, No murmurs Gastrointestinal: Normal bowel sounds, Soft and benign, Non-distended, No rebound, No guarding, Tenderness (RUQ) Musculoskeletal: No clubbing Integumentary: No rashes Neurological: Normal speech, Normal affect Assessment And Plan - Plan # Extensive Cholelithiasis without Acute Cholecystitis # Elevated LFTs due to above - Radiology: - RUQ ultrasound = "cholelithiasis. No sonographic findings to suggest acute cholecystitis." - MRCP = "extensive cholelithiasis with gallbladder distension" - Chest x-ray = "no acute cardiopulmonary process." - General Surgery consulted and spoke with Dr. Amador - recommendations appreciated - Plan for laparoscopic cholecystectomy today - Continue piperacillin-tazobactam - Lactated Ringers' at 75 mL/hr - PRN symptom management - NPO pending surgery # Left Posterior Pelvic Mass (8.8 cm) # S/P Cesarian Section Delivery (08/26/2022) with possible Post-Operative Seroma - CT abdomen/pelvis = "no acute abnormalities on CT angiogram of the aorta. Left posterior pelvic mass up to 8.8 centimeter in size, not well characterized. This could represent a lower segment or cervical fibroid among other considerations. Consider additional evaluation by dedicated pelvic ultrasound, although this may be suboptimal given size and posterior location of the mass. MRI of the pelvis would provide superior soft tissue characterization. Other incidental findings as above, including a lower anterior abdominal wall lenticular collection, could represent a postoperative seroma" - Pelvic US = "recently gravid uterus as above. Some heterogeneity at the central aspect of the fundus likely relating to involuting endometrium. The ovaries could not be visualized. The posteriorly situated masslike abnormality appreciated on CT is not well visualized on this transabdominal ultrasound. MRI would be more helpful for further evaluation, however preferably it can be performed after more time was allowed for uterine involution, in 2-6 weeks." - I reviewed report with Dr. Hewitt (Radiology) - he is unsure if these findings represent a uterine fibroid vs malignancy. He advised that she have an outpatient MRI in 2-6 weeks once the uterus has reduced in size from its post- state - I spoke with Ms. Amador and informed her of these findings and their significance. She agreed to schedule an MRI with her Wall Attendant upon discharge. Laz Parrish M.D.
[2022-09-17] MEDS: Ringers Lactate 1,000 ML IV SCH (20:56)
[2022-09-17 21:55] VITALS: O2SAT 96
[2022-09-18] MEDS: HYDROCODONE/APAP 5/325 MG TAB PO PRN ×2 (01:02→07:31)
[2022-09-18] MEDS: PIPER TAZO 3.375 GM in NA CHLORIDE 0.9% 100 ML IV SCH ×2 (01:03→08:07)
[2022-09-18] MEDS: MORPHINE 2 MG/ML SYR IV PRN ×3 (03:01→09:40)
[2022-09-18 04:00] LABS: Albumin 2.9 g/dL (3.4-5.0); Bilirubin Total 0.5 mg/dL (0.2-1.0); Potassium 3.8 mEq/L (3.5-5.1); Protein, Total 6.6 g/dL (6.4-8.2)
--- NOTE | 2022-09-18 08:33 | P.DS ---
Admission Date: 09/16/22 Discharge Date: 09/18/22 Disposition: ROUTINE DISCHARGE Discharge Condition: GOOD Reason for Admission: Epigastric pain Consultations: 1. General Surgery Procedures: - 09/17/2022 - Laparoscopic Cholecystectomy Hospital Course: DIAGNOSES: # Extensive Cholelithiasis without Acute Cholecystitis # Elevated LFTs due to above # Left Posterior Pelvic Mass (8.8 cm) # S/P Cesarian Section Delivery (08/26/2022) with possible Post-Operative Seroma HOSPITAL COURSE: Ms. Frida Amador is a 37 year old female with no reported past medical history who was admitted to the [facility] on 09/16/2022 for abdominal pain. She was admitted to the Medicine service. Upon further evaluation, her CT abdomen/pelvis revealed, "no acute abnormalities on CT angiogram of the aorta. Left posterior pelvic mass up to 8.8 centimeter in size, not well characterized. This could represent a lower segment or cervical fibroid among other considerations. Consider additional evaluation by dedicated pelvic ultrasound, although this may be suboptimal given size and posterior location of the mass. MRI of the pelvis would provide superior soft tissue characterization. Other incidental findings as above, including a lower anterior abdominal wall lenticular collection, could represent a postoperative seroma." Her right upper quadrant ultrasound revealed, "cholelithiasis. No sonographic findings to suggest acute cholecystitis." Her MRCP revealed, "extensive cholelithiasis with gallbladder distension." General Surgery was consulted and she was evaluated by Dr. Amador. On 09/17/2022, she underwent a laparoscopic cholecystectomy. She tolerated the procedure well and her diet was gradually advanced. Dr. Amador has cleared her for discharge with a 7-day course of amoxicillin-clavulanate. He advised that she be discharged with a TYLOR drain, and he will remove it in his clinic early next week. I confirmed with pharmacist, Santy, that this medication is safe when breast feeding. In regards to narcotic pain medication, she was advised not to take these medications when breast feeding. Per discussion with pharmacistSanty, she should not breast feed until it has been 24 hours from her last narcotic dose. To be safe, she was advised not to breast feed until it has been at least 48 hours from her last narcotic medication dose. Incidentally, her pelvic ultrasound revealed, "recently gravid uterus as above. Some heterogeneity at the central aspect of the fundus likely relating to involuting endometrium. The ovaries could not be visualized. The posteriorly situated masslike abnormality appreciated on CT is not well visualized on this transabdominal ultrasound. MRI would be more helpful for further evaluation, however preferably it can be performed after more time was allowed for uterine involution, in 2-6 weeks." I reviewed her CT report with Dr. Hewitt (Radiology). He was unsure if these findings represent a uterine fibroid vs malignancy. He advised that she have an outpatient MRI in 2-6 weeks once the uterus has reduced in size from its post- state. I spoke with Ms. Amador and informed her of these findings and their significance. She agreed to schedule an MRI with her Certified Hand Therapist upon discharge. On 09/18/2022, she was seen on morning rounds and deemed medically stable for discharge. She was discharged with instructions to schedule follow-up appointments with her PCP, with General Surgery (Dr. Amador), and with Certified Hand Therapist (Dr. Lind). She was provided prescriptions for amoxicillin-clavulanate and hydrocodone-acetaminophen. She and her family members were given the opportunity to ask questions and reported no further questions. Furthermore, all questions were answered to the best of my ability. Prior to the controlled substance prescription, a PDMP review was conducted. Over the last 2 years, she has received 1 controlled prescription from 1 provider to 1 pharmacy. Her opioid overdose risk score is 200. A copy of this discharge summary will be sent to the above providers to facilitate continuity of care. Today, I personally spent 25 minutes on her case, of which greater than 50% of the time was spent in patient education, counseling, and coordination of care as described above. - Physical Exam General: Alert, In no apparent distress, Oriented x3 HEENT: Atraumatic, Mucous membr. moist/pink, Sclerae nonicteric Neck: JVD not distended Respiratory: Clear to auscultation bilaterally, Normal air movement Cardiovascular: No edema, Regular rate/rhythm, No murmurs Gastrointestinal: Normal bowel sounds, Soft and benign, Non-distended, No rebound, No guarding, Minimal tenderness (RUQ). Surgical site covered in clean dressing. TYLOR drain noticed with minimal serosanguineous output. Musculoskeletal: No clubbing Integumentary: No rashes Neurological: Normal speech, Normal affect Vital Signs/Physical Exam: Temp Pulse Resp BP Pulse Ox 98.9 F 70 16 115/81 98 09/18/22 04:00 09/18/22 04:00 09/18/22 07:31 09/18/22 04:00 09/18/22 07:31 Laboratory Data at Discharge: WBC 9.60 thou/uL (4.3-10.9) 09/17/22 02:34 Hgb 12.8 g/dL (12.0-15.0) 09/17/22 02:34 Hct 38.4 % (36.0-45.0) 09/17/22 02:34 Plt Count 539 thou/uL (152-406) H 09/17/22 02:34 PT 10.4 SECONDS (9.5-12.5) 09/16/22 10:45 INR 0.95 09/16/22 10:45 Sodium 135 mEq/L (136-145) L 09/18/22 03:08 Potassium 3.8 mEq/L (3.5-5.1) 09/18/22 03:08 BUN 10 mg/dL (7-18) 09/18/22 03:08 Creatinine 0.55 mg/dL (0.55-1.02) 09/18/22 03:08 Glucose 126 mg/dL (74-106) H 09/18/22 03:08 Phosphorus 3.6 mg/dL (2.5-4.9) 09/16/22 17:32 Magnesium 2.2 mg/dL (1.6-2.4) 09/16/22 17:32 Total Bilirubin 0.5 mg/dL (0.2-1.0) 09/18/22 03:08 AST 127 U/L (15-37) H 09/18/22 03:08 ALT 252 U/L (13-56) H 09/18/22 03:08 Alkaline Phosphatase 324 U/L (45-117) H 09/18/22 03:08 Lipase 47 U/L (13-75) 09/16/22 10:45 Home Medications: Docusate Sodium 100 mg PO BID 09/16/22 Vit No.130/Iron/Folic [ Tablet] 1 each PO DAILY 09/16/22 Amox/Clavulanate [Augmentin 875-125 Tab] 875 mg PO BID 7 Days #14 tab 09/18/22 Hydrocodone 5/APAP 325 [Swanquarter 5/325*] 1 tab PO Q6H PRN 3 Days #12 tab 09/18/22 New Medications: Amox/Clavulanate [Augmentin 875-125 Tab] 875 mg PO BID 7 Days #14 tab Hydrocodone 5/APAP 325 [[place] 5/325*] 1 tab PO Q6H PRN 3 Days #12 tab PRN Reason: Pain Physician Discharge Instructions: 1. Please call and schedule a follow-up appointment with your PCP in 3-5 days 2. Please call and schedule a follow-up appointment with General Surgery (Dr. Amador) in 3-5 days - Your liver enzymes were elevated, which is likely due to your gallstones. He will repeat your blood work at this appointment - He is planning to remove your abdominal drain at this appointment 3. Please call and schedule a follow-up appointment with your Certified Hand Therapist (Dr. Lind) in 3-5 days - Please have your Certified Hand Therapist order an MRI of your abdomen/pelvis in 2-6 weeks to evaluate that spot found on your uterus. - Please do not breast feed while taking pain medicine. While taking the hydrocodone-acetaminophen (Swanquarter), please pump and dump breast milk. You can resume breast feeding after 48 hours of no pain medicine. Diet: AHA Activity: Ad mitul Followup: Anthony Amador MD [ACTIVE - CAN ADMIT] - Erasmo Lind MD [Other] Time spent managing pt's care (in minutes): 25
[2022-09-18 08:38] VITALS: BP 122/82; TEMP 97.1
[2022-09-18] MEDS ORDERED: POTASSIUM CL SA 10 MEQ TAB PO ONE (09:00)
[2022-09-18] MEDS: Ringers Lactate 1,000 ML IV SCH (10:20)
== END 2022-09-18 10:53 | disposition home or self-care (01) ==
LOC: ER 09:43 → INTOOBSV 14:15 → ERHOLD 14:15 → 2ND 19:20
PROVIDERS: ADMIT Internal Medicine; ATTEND Internal Medicine
PROC: 0FT44ZZ Resection of Gallbladder, Percutaneous Endoscopic Approach (ICD-10-PCS; principal; 2022-09-17 11:45)
DX: O99.63 Diseases of the digestive system complicating the puerperium (principal); K80.10 Calculus of gallbladder with chronic cholecystitis without obstruction; R07.9 Chest pain, unspecified; R10.11 Right upper quadrant pain; R79.89 Other specified abnormal findings of blood chemistry; D72.829 Elevated white blood cell count, unspecified; E66.9 Obesity, unspecified; R19.00 Intra-abdominal and pelvic swelling, mass and lump, unspecified site; Z98.890 Other specified postprocedural states; Z68.33 Body mass index [BMI] 33.0-33.9, adult
CPT/HCPCS: 96365; 96361; 93005; 85025 ×2; 81001; 80048; 36415 ×2; 83735 ×2; 84100; 85610; 80076 ×2; 88304; 82248; 84484 ×3; 83690; 80053 ×2; 83880; 71275; 74175; 71045; 74181; 76705; 76856; 94010; 94760 ×3; 96375; 99285; 96366; 47562; Q9967; J2704; J2710; J2543 ×6; J2250; J3010 ×3; J2270 ×8; J2175; J1170; J2405 ×4; J7042; J7120 ×2; J7030; G0378